=== PATIENT | female | born 1950 | race Caucasian/White ===

== ENCOUNTER → 2020-07-25 | Outpatient (CLI) | payer OTHER ==
[2020-07-26 13:15] LABS: RHEUMATOID ARTHRITIS FACTOR <10.0 IU/mL (0.0-13.9)
[2020-07-28 00:07] LABS: CCP ANTIBODIES IGG/IGA 21 units (0-19)
== END ==
LOC: LAB 10:10
PROVIDERS: Nurse Practitioner Family
DX: D89.9 Disorder involving the immune mechanism, unspecified (principal); M25.50 Pain in unspecified joint; R76.8 Other specified abnormal immunological findings in serum; M65.9 Synovitis and tenosynovitis, unspecified
CPT/HCPCS: 36415; 83520; 85652; 86140; 86200; 86431

== ENCOUNTER → 2021-01-19 | Outpatient (CLI) | payer OTHER ==
[~2021-01-19] MED LIST: ALENDRONATE SOD70 MG PO; AMLODIPINE BESYL5 MG PO; CALCIUM500 MG PO; CITALOPRAM HBR20 MG PO; LEVOTHYROXINE75 MCG PO; MELOXICAM15 MG PO; NEXIUM20 MG PO; OMEGA 3 1,0001 EACH PO; TRAMADOL HCL50 MG PO; VITAMIN D325 MCG PO; ZOCOR 40 MG TAB40 MG PO
[2021-01-19 11:34] LABS: HEMOGLOBIN 14.9 gm/dl (12.3-15.3); RED BLOOD COUNT 4.73 M/UL (4.00-5.10); WHITE BLOOD COUNT 8.7 K/UL (4.5-11.0)
[2021-01-19 11:56] LABS: BUN/CREATININE RATIO 15 (0-10)
== END ==
LOC: OPSV2 10:40
PROVIDERS: Orthopaedic Surgery
DX: Z01.818 Encounter for other preprocedural examination (principal); M65.342 Trigger finger, left ring finger
CPT/HCPCS: 80048; 85027; 93005